=== PATIENT | male | born 1955 | race Hispanic/Latino ===

== ENCOUNTER → 2017-06-09 | Outpatient (CLI) | payer OTHER ==
[~2017-06-09] MED LIST: FERS325 PO; IOPAMIDOL-370 75 ML VIAL IV ONE; LISI-613 PO
== END | disposition home or self-care (01) ==
LOC: OIH 09:01
PROVIDERS: ATTEND Internal Medicine Gastroenterology
DX: C20 Malignant neoplasm of rectum (principal); D12.5 Benign neoplasm of sigmoid colon
CPT/HCPCS: 74178; Q9967

== ENCOUNTER 2017-06-29 07:15 | Day surgery (SDC) | payer OTHER ==
[2017-06-26 10:16] VITALS: BP 108/56
[2017-06-26 10:25] LABS: BASOPHILS % (AUTO) 0.2 % (0.0-5.0); EOSINOPHILS % (AUTO) 2.7 % (0.0-8.0); HEMATOCRIT 26.1 % (42-54); MEAN CORPUSCULAR HEMOGLOBIN 23.9 pg (27.0-33.0); MEAN CORPUSCULAR HGB CONC 32.2 g/dL (32.0-36.0); MEAN CORPUSCULAR VOLUME 74.4 fL (79-99); MONOCYTES % (AUTO) 7.2 % (3.0-13.0); NEUTROPHILS % (AUTO) 73.9 % (40.0-77.0); PLATELET COUNT (AUTO) 655 K/uL (130-400); RED CELL DISTRIBUTION WIDTH 19.3 % (11.0-15.5); WHITE BLOOD COUNT (AUTO) 10.6 K/uL (4.8-10.8)
[2017-06-26 10:39] LABS: INR 0.99 (0.85-1.15); PARTIAL THROMBOPLASTIN TIME 27.6 SEC (26.3-35.5); PROTHROMBIN TIME 10.2 SEC (9.6-11.6)
[~2017-06-29] VITALS: Ht 170.2 cm; Wt 77.2 kg
[~2017-06-29 07:15] MED LIST changes: -IOPAMIDOL-370 75 ML VIAL IV ONE
[2017-06-29 07:20] VITALS: BP 110/63
[2017-06-29] MEDS ORDERED: SODIUM CHLORIDE 0.9% 1000ML 1,000 ML IV ONE (08:08)
[2017-06-29] MEDS ORDERED: SODIUM BICARB 50MEQ 50ML VIAL ONE (09:00)
[2017-06-29] MEDS ORDERED: ISOVUE-370 50ML VIAL IV ONE (09:00)
[2017-06-29] MEDS ORDERED: MIDAZOLAM HCL 1 MG/ML 2ML VIAL ONE (09:01)
[2017-06-29] MEDS ORDERED: FENTANYL CITRATE PF 50 MCG/1 ML 2ML VIAL ONE (09:01)
[2017-06-29] MEDS ORDERED: LIDOCAINE HCL 2% 20ML ONE (09:01)
[2017-06-29] MEDS ORDERED: BUPIVACAINE/PF 0.25% 30ML VIAL IJ ONE (09:03)
[2017-06-29] MEDS ORDERED: LIDOCAINE 1%-EPI 1:100,000 20 ML VIAL IJ ONE (09:03)
[2017-06-29] MEDS ORDERED: LIDOCAINE HCL 1% MDV 50ML VIAL ONE (09:04)
[2017-06-29] MEDS ORDERED: ACETAMINOPHEN 325 MG TAB PO PRN (10:30)
[2017-06-29 10:40] VITALS: BP 107/60
[2017-06-29 10:55] VITALS: BP 101/59
[2017-06-29 11:15] VITALS: BP 98/58
[2017-06-29 11:30] VITALS: BP 105/62
== END 2017-06-29 11:49 | disposition home or self-care (01) ==
LOC: DAH 07:15
PROVIDERS: ATTEND Internal Medicine Medical Oncology
DX: C19 Malignant neoplasm of rectosigmoid junction (principal); Z79.899 Other long term (current) drug therapy; Z79.01 Long term (current) use of anticoagulants; Z98.890 Other specified postprocedural states
CPT/HCPCS: 36415; 36561; 77001; 85025; 85610; 85730; A4606; C1788; C1894; J1644; J2250; J3010; J3490 ×3; J7030; 99152; 99153; Q9967

== ENCOUNTER 2020-02-13 09:48 | Day surgery (SDC) | payer OTHER ==
[2020-02-09 11:38] LABS: BASOPHILS % (AUTO) 0.3 % (0.0-5.0); EOSINOPHILS % (AUTO) 2.3 % (0.0-8.0); HEMATOCRIT 38.5 % (42-54); LYMPHOCYTES % (AUTO) 18.6 % (21.0-51.0); MEAN CORPUSCULAR HEMOGLOBIN 31.2 pg (27.0-33.0); MEAN CORPUSCULAR HGB CONC 31.9 g/dL (32.0-36.0); MEAN CORPUSCULAR VOLUME 97.7 fL (79-99); MONOCYTES % (AUTO) 9.6 % (3.0-13.0); NEUTROPHILS % (AUTO) 68.9 % (40.0-77.0); PLATELET COUNT (AUTO) 224 K/uL (130-400); RED BLOOD CELL COUNT(AUTO) 3.94 MIL/uL (4.50-6.20); RED CELL DISTRIBUTION WIDTH 13.1 % (11.0-15.5); WHITE BLOOD COUNT (AUTO) 3.9 K/uL (4.8-10.8)
[2020-02-09 11:52] LABS: INR 0.92 (0.85-1.15); PARTIAL THROMBOPLASTIN TIME 27.2 SEC (26.3-35.5)
[2020-02-09 11:55] LABS: ALBUMIN 3.8 g/dL (3.5-5.0); BILIRUBIN,TOTAL 0.3 mg/dL (0.2-1.0); POTASSIUM 5.2 mmol/L (3.5-5.1); TOTAL PROTEIN, SERUM 7.6 g/dL (6.0-8.3)
[2020-02-13] MEDS ORDERED: SODIUM CHLORIDE 0.9% 1000ML 1,000 ML IV ONE (10:51)
== END 2020-02-13 13:45 | disposition home or self-care (01) ==
LOC: DAH 09:48
PROVIDERS: ATTEND Internal Medicine Medical Oncology
DX: Z45.2 Encounter for adjustment and management of vascular access device (principal); I10 Essential (primary) hypertension; Z90.49 Acquired absence of other specified parts of digestive tract; C20 Malignant neoplasm of rectum; D50.0 Iron deficiency anemia secondary to blood loss (chronic); D70.2 Other drug-induced agranulocytosis; Z79.01 Long term (current) use of anticoagulants; Z79.899 Other long term (current) drug therapy; Z53.8 Procedure and treatment not carried out for other reasons
CPT/HCPCS: 36415; 80053; 82378; 85025; 85610; 85730; A4215; A4216; A4221; A4222; A4223 ×3; A4663; J7030

== ENCOUNTER 2022-12-15 05:01 | Observation (INO) | payer OTHER ==
[2022-12-10 12:30] LABS: POTASSIUM 5.2 mmol/L (3.5-5.1)
[2022-12-10 12:43] VITALS: BP 142/79; PULSE 72; RESP 17
[2022-12-15] VITALS (25 sets, daily range): BP systolic 120–159; BP diastolic 50–95; PULSE 62–85; RESP 12–22; O2SAT 96
[~2022-12-15] VITALS: Ht 170.2 cm; Wt 111.4 kg
[~2022-12-15 05:01] MED LIST changes: +ATOR10 PO; -FERS325 PO; +GABA-529 PO; -LISI-613 PO; +LISI10TA24 PO
[2022-12-15] MEDS ORDERED: LACTATED RINGERS 1000ML 1,000 ML IV ONE (05:21)
[2022-12-15] MEDS ORDERED: CEFAZOLIN SODIUM 2 GM VIAL ONE (05:21)
[2022-12-15] MEDS ORDERED: 0.9%NACL 100ML 48.45 ML, ROPIVACAINE 0.5% 5MG/ML 30ML 246.25 MG, KETOROLAC TROMETHAMINE... IV PRN ×5 (07:30)
[2022-12-15] MEDS ORDERED: CEFAZOLIN SODIUM 1 GM VIAL ONE (08:48)
[2022-12-15] MEDS ORDERED: GENTAMICIN SULFATE 80 MG/2 ML VIAL ONE (08:48)
[2022-12-15] MEDS ORDERED: LIDOCAINE PF 100MG/5ML (2%) SYRINGE 5ML ONE (09:31)
[2022-12-15] MEDS ORDERED: PROPOFOL 10 MG/ML 20ML VIAL IV ONE ×5 (09:31→12:11)
[2022-12-15] MEDS ORDERED: MIDAZOLAM HCL 1 MG/ML 2ML VIAL ONE (09:31)
[2022-12-15 09:35] LABS: EOSINOPHILS # (AUTO) 0.18 K/uL (0.00-0.70); EOSINOPHILS % (AUTO) 3.8 % (0.0-8.0); HEMATOCRIT 33.5 % (42-54); IMMATURE GRANULOCYTE ABSOLUTE 0.01 K/uL (0-1); LYMPHOCYTES # (AUTO) 0.7 K/uL (1.0-4.8); LYMPHOCYTES % (AUTO) 14.3 % (21.0-51.0); MEAN CORPUSCULAR HEMOGLOBIN 31.8 pg (27.0-33.0); MEAN CORPUSCULAR HGB CONC 31.9 g/dL (32.0-36.0); MEAN CORPUSCULAR VOLUME 99.4 fL (79-99); MONOCYTES # (AUTO) 0.6 K/uL (0.1-1.0); NEUTROPHILS # (AUTO) 3.3 K/uL (1.8-7.7); NEUTROPHILS % (AUTO) 69.7 % (40.0-77.0); PLATELET COUNT (AUTO) 199 K/uL (130-400); RED BLOOD CELL COUNT(AUTO) 3.37 MIL/uL (4.50-6.20); WHITE BLOOD COUNT (AUTO) 4.8 K/uL (4.8-10.8)
[2022-12-15] MEDS ORDERED: CEFAZOLIN SODIUM 2 GM VIAL IVPB ONE ×2 (09:53→10:01)
[2022-12-15] MEDS ORDERED: GENTAMICIN SULFATE 80 MG/2 ML VIAL IM ONE (09:56)
[2022-12-15] MEDS ORDERED: TRANEXAMIC ACID 1000MG/10ML IV ONE (09:59)
[2022-12-15] MEDS ORDERED: DEXAMETHASONE SOD PHOSPHATE 4 MG/ML 1ML VIAL ONE (10:24)
[2022-12-15] MEDS ORDERED: DEXAMETHASONE SOD PHOSPHATE 10MG/ML 1ML VIAL ONE (10:24)
[2022-12-15] MEDS ORDERED: ONDANSETRON 4MG INJ ONE (10:24)
[2022-12-15] MEDS ORDERED: DIPHENHYDRAMINE HCL 25 MG CAPSULE PO PRN (14:00)
[2022-12-15] MEDS ORDERED: BENZOCAINE/MENTH/CETYLPYRD CL 1 EACH LOZENGE MM PRN (14:00)
[2022-12-15] MEDS ORDERED: DIPHENHYDRAMINE HCL 25 MG CAPSULE PO SCH (14:00)
[2022-12-15] MEDS ORDERED: HYDROMORPHONE PCA 10 MG/50 ML 50 ML IV PRN (14:00)
[2022-12-15] MEDS ORDERED: TRAMADOL HCL 50 MG TABLET PO PRN (14:00)
[2022-12-15] MEDS ORDERED: DIPHENOXYLATE HCL/ATROPINE 2.5/0.025 MG TAB PO PRN (14:00)
[2022-12-15] MEDS ORDERED: ONDANSETRON 4MG INJ IVP PRN (14:00)
[2022-12-15] MEDS ORDERED: MAG/ALUM/SIMETH 30 ML UDCUP PO PRN (14:00)
[2022-12-15] MEDS ORDERED: LACTULOSE 20 GM/30 ML UDCUP PO PRN (14:00)
[2022-12-15] MEDS ORDERED: ACETAMINOPHEN 325 MG TAB PO PRN ×3 (14:00)
[2022-12-15] MEDS: TRAMADOL HCL 50 MG TABLET PO PRN ×2 (14:20→17:50)
[2022-12-15] MEDS: 0.9%NACL 1000ML 1,000 ML IV SCH (16:58)
[2022-12-15] MEDS ORDERED: COMPOUND IV REFRIGERATED 1 EACH IVSOLN MISC PRN (17:30)
[2022-12-15] MEDS ORDERED: CEFAZOLIN SODIUM 3 GM in DEXTROSE 5%-WATER 100 ML IVPB SCH (17:30)
[2022-12-15] MEDS ORDERED: CEFAZOLIN SODIUM 2 GM VIAL IVPB SCH (18:30)
[2022-12-15] MEDS: RIVAROXABAN 10 MG TABLET PO SCH (19:35)
[2022-12-15] MEDS: GABAPENTIN 100 MG CAPSULE PO SCH (19:35)
[2022-12-15] MEDS ORDERED: ATORVASTATIN 20 MG TABLET PO SCH (21:00)
[2022-12-15] MEDS ORDERED: LISINOPRIL 10 MG TABLET PO SCH (21:00)
[2022-12-16] MEDS ORDERED: CEFAZOLIN SODIUM 2 GM VIAL IVPB SCH (01:30)
[2022-12-16 03:48] VITALS: BP 123/58; PULSE 71; RESP 18
[2022-12-16 06:10] LABS: BASOPHILS # (AUTO) 0.01 K/uL (0.00-0.20); BASOPHILS % (AUTO) 0.1 % (0.0-5.0); HEMATOCRIT 28.2 % (42-54); IMMATURE GRANULOCYTE ABSOLUTE 0.04 K/uL (0-1); LYMPHOCYTES # (AUTO) 0.5 K/uL (1.0-4.8); LYMPHOCYTES % (AUTO) 5.9 % (21.0-51.0); MEAN CORPUSCULAR HEMOGLOBIN 31.3 pg (27.0-33.0); MEAN CORPUSCULAR HGB CONC 31.9 g/dL (32.0-36.0); MEAN CORPUSCULAR VOLUME 97.9 fL (79-99); MONOCYTES # (AUTO) 0.8 K/uL (0.1-1.0); NEUTROPHILS # (AUTO) 6.5 K/uL (1.8-7.7); NEUTROPHILS % (AUTO) 83.5 % (40.0-77.0); PLATELET COUNT (AUTO) 209 K/uL (130-400); RED BLOOD CELL COUNT(AUTO) 2.88 MIL/uL (4.50-6.20); RED CELL DISTRIBUTION WIDTH 12.6 % (11.0-15.5); WHITE BLOOD COUNT (AUTO) 7.8 K/uL (4.8-10.8)
[2022-12-16 06:29] LABS: HEMOGLOBIN A1C 7.1 % (4.0-6.0); POTASSIUM 4.5 mmol/L (3.5-5.1)
[2022-12-16 06:58] LABS: BAND NEUTROPHILS % (MANUAL) 19 % (0-2); LYMPHOCYTES % (MANUAL) 10 % (22-44); MAN.DIFF COMMENT-IMPRESSION MANUAL DIFFERENTIAL; MONOCYTES % (MANUAL) 4 % (2-9); PLATELET MORPHOLOGY COMMENT ADEQUATE; SEGMENTED NEUTROPHILS % 67 % (40-70); TOTAL CELLS COUNTED 100; WBC MORPHOLOGY CONSISTENT W/DIFF
[2022-12-16 07:42] VITALS: BP 122/55; PULSE 75; RESP 18
[2022-12-16 08:00] VITALS: O2SAT 99
[2022-12-16] MEDS ORDERED: RIVAROXABAN 10 MG TABLET PO SCH (09:00)
[2022-12-16] MEDS: RIVAROXABAN 10 MG TABLET PO SCH (10:04)
[2022-12-16] MEDS: GABAPENTIN 100 MG CAPSULE PO SCH (10:04)
[2022-12-16] MEDS: 0.9%NACL 1000ML 1,000 ML IV SCH ×2 (10:07)
[2022-12-16 12:24] VITALS: BP 130/52; PULSE 81; RESP 19
[2022-12-16] MEDS ORDERED: CEFAZOLIN SODIUM 3 GM in DEXTROSE 5%-WATER 100 ML IVPB SCH (14:30)
[2022-12-16] MEDS: TRAMADOL HCL 50 MG TABLET PO PRN (14:57)
[2022-12-16 16:56] VITALS: BP 138/60; PULSE 78; RESP 18
== END 2022-12-16 17:30 | disposition home health service (06) ==
LOC: DAH 05:01 → DAHIP 05:02 → 4DH 13:39
PROVIDERS: ADMIT Internal Medicine; ATTEND Internal Medicine
DX: M17.11 Unilateral primary osteoarthritis, right knee (principal); I10 Essential (primary) hypertension; E87.5 Hyperkalemia; D53.9 Nutritional anemia, unspecified; E11.9 Type 2 diabetes mellitus without complications; Z85.038 Personal history of other malignant neoplasm of large intestine; Z86.12 Personal history of poliomyelitis; Z96.651 Presence of right artificial knee joint; Z79.899 Other long term (current) drug therapy; Z98.890 Other specified postprocedural states
CPT/HCPCS: 80048 ×2; 36415 ×3; 87641; 27447; 97161; 96365; 96375; 85025 ×2; 97012; 97116 ×3; 96366; 83036; 97039 ×2; A6260; J1100 ×2; G0378 ×26; G0379; A4663; J7120 ×2; A4215 ×2; A4649 ×4; J0690 ×6; J3490; J1170; J0171; J2001; J1580 ×2; J2250; J2704 ×5; J2405; J1885; J2795; J0735; A6223; C1763 ×2; C1776; A5120; A4223; A4222; A4221; A6450; J7030; J7060; A4510

== ENCOUNTER → 2024-06-08 | Outpatient (CLI) | payer OTHER ==
[~2024-06-08] MED LIST changes: +GADOTERATE MEGLUMINE 10 MMOL/20 ML VIAL IV ONE
--- NOTE | 2024-06-08 14:40 | HMCIMG ---
MRI PELVIS WITHOUT AND WITH CONTRAST INDICATION: Benign prostatic hyperplasia with lower urinary tract symptoms. N40.1 COMPARISON: None. TECHNIQUE: MRI of the pelvis was performed following standard departmental protocol before and after the intravenous administration of 20 mL of Clariscan contrast material. FINDINGS/IMPRESSION: Chronic moderate L4 vertebral body compression deformity and broad-based posterior disc-osteophyte complex at the L5-S1 level with left greater than right foraminal extension and moderate bilateral facet disease contributing to moderate to severe left neuroforaminal narrowing, and diffuse marrow pallor suggests osteopenia. Mild near circumferential smooth posterior greater than anterior mid to distal rectal wall thickening (thickness measuring up to 8.6 mm) and mild presacral edema, without discrete lesion/mass. Normal appearance in size of the prostate gland, without any intrapelvic free fluid or lymphadenopathy. Chronic-appearing mild urinary bladder wall thickening without any surrounding inflammatory changes or edema, including no evidence for intraluminal lesion/mass.
== END | disposition home or self-care (01) ==
LOC: RAH 12:57
PROVIDERS: ATTEND Internal Medicine
DX: N40.1 Benign prostatic hyperplasia with lower urinary tract symptoms (principal); N32.89 Other specified disorders of bladder; M25.78 Osteophyte, vertebrae; Z85.048 Personal history of other malignant neoplasm of rectum, rectosigmoid junction, and anus
CPT/HCPCS: 72197; A9575